=== PATIENT | female | born 1955 | race Caucasian/White ===

== ENCOUNTER 2021-11-15 19:01 | Emergency (ER) | payer BC, SELFPAY ==
--- NOTE | ~2021-11-15 | XR_ITS ---
EXAMINATION: XR chest 2V Exam Date/Time: 11/15/2021 19:12 CDT CLINICAL HISTORY: wheezing hx of copd Comparison: None available. RESULT: Lines, tubes, and devices: None. Lungs and pleura: Clear. Cardiomediastinal silhouette: Aortic ectasia and arch calcification. Other: No acute osseous or upper abdominal finding. Multilevel degenerative disc disease in the thor acic spine. IMPRESSION: No acute cardiopulmonary process Reviewed, dictated and finalized at location K.
--- NOTE | 2021-11-15 19:09 | ED.URI ---
HPI - URI/Sore Throat General Chief Complaint: Upper Respiratory Infection Stated Complaint: COPD,Wheezing Time Seen by Provider: 11/15/21 19:09 Source: patient Mode of arrival: ambulatory Limitations: no limitations History of Present Illness HPI Narrative: 66-year-old female with history of COPD presents with complaint of shortness of breath, chest tightness and cough. Has been sick with cold symptoms for the past week. Finished Z-Paulino today that was given to her by her PCP. Did a telephone visit and was not seen in the office. Has been using her daily inhalers along with her albuterol inhaler. States that she normally does not require her albuterol inhaler. States that she has not had wheezing and chest tightness before with a viral infection. Afebrile. All systems reviewed and negative except as noted above. Related Data Home Medications Medication Instructions Recorded Confirmed atorvastatin 10 mg PO DAILY 11/15/21 11/15/21 azelastine-fluticasone 1 spray INTRANASAL DIRECTED 11/15/21 11/15/21 azithromycin 1 mg PO DAILY 11/15/21 11/15/21 fluoxetine 20 mg PO DAILY 11/15/21 11/15/21 [id number]-[id number] 1 ea INHALATION DIRECTED 11/15/21 11/15/21 [Trelegy Ellipta] levalbuterol tartrate 2 puff INHALATION DIRECTED 11/15/21 11/15/21 lisinopril 10 mg PO DAILY 11/15/21 11/15/21 montelukast 10 mg PO DAILY 11/15/21 11/15/21 Allergies Allergy/AdvReac Type Severity Reaction Status Date / Time nitrofurantoin Allergy Unknown Skin Verified 07/08/17 21:20 Reaction Sulfa (Sulfonamide Allergy Unknown RASH Verified 10/13/18 08:47 Antibiotics) Review of Systems Review of Systems: CONSTITUTIONAL: Denies fever, chills, or sweats. EYES: Denies visual changes, redness, or discharge. ENT: Denies rhinorrhea, congestion, sore throat, or otalgia. CARDIOVASCULAR: Denies chest pain, palpitations, or edema. RESPIRATORY: Reports cough, wheezing and shortness of breath. GASTROINTESTINAL: Denies abdominal pain, nausea, vomiting, or diarrhea. GENITOURINARY: Denies dysuria or hematuria. SKIN: Denies rash or itching. MUSCULOSKELETAL: Denies back pain, joint pain, or myalgia. NEUROLOGIC: Denies headache, numbness, or weakness. PSYCHIATRIC: Denies anxiety or depression. All other systems reviewed are negative, except as documented in HPI. PMFSH Comments At time of signature, agree with nursing past medical, surgical, social and family history. There is no relevant family history pertinent to the presenting complaint. Exam Narrative: GENERAL: This is a well-nourished, well-developed patient, in no apparent distress. HEAD: normocephalic, atraumatic. EYES: PERRL. Sclera clear/white. Vision is grossly intact. EARS: External ears normal NOSE: External nose normal NECK: Neck supple, non-tender without lymphadenopathy, masses or thyromegaly. CARDIOVASCULAR: Regular rate and rhythm without murmurs, gallops, or rubs. RESPIRATORY: Expiratory wheezing, decreased lung sounds little air movement. No respiratory distress. SKIN: warm, Dry, intact with no suspicious lesions or rash, good texture and turgor. NEURO: awake, alert, and oriented to person, place and time. There were no obvious focal neurologic abnormalities. EXTREMITIES: Normal range of motion to all extremities. Course Course Level of Care: Express Care Visit Reevaluation(s) Reevaluation #1: Continues to have expiratory wheezing but increased air movement. Date: 11/15/21 Time: 19:46 Vital Signs Vital signs: Reviewed MDM - URI/Sore Throat MDM Narrative Medical decision making narrative: Discussed chest x-ray results with patient. Patient reports that she is feeling much better. Chest tightness has resolved. Reports that she can take a deeper breath. Prescription for nebulizer sent to pharmacy. Patient is aware of diagnosis, understands and agrees to treatment plan. Anticipatory guidance given. Patient agrees to follow-up as directed and is aware of tiffany
[2021-11-15 19:11] VITALS: BP 161/90; PULSE 106; RESP 20; TEMP 36.9; O2SAT 97
[2021-11-15] MEDS: predniSONE 20 MG TABLET 40 MG PO (19:24)
[2021-11-15] MEDS: ALBUTEROL SULFATE NEB 2.5 MG/3 ML INH INHALATION (19:24)
[2021-11-15 19:44] VITALS: PULSE 86; RESP 20; O2SAT 97
== END 2021-11-15 19:50 | disposition home or self-care (01) ==
PROVIDERS: Emergency Provider Nurse Practitioner Family
DX: J44.1 Chronic obstructive pulmonary disease with (acute) exacerbation (principal); E78.00 Pure hypercholesterolemia, unspecified; I10 Essential (primary) hypertension; F41.9 Anxiety disorder, unspecified; Z86.16 Personal history of COVID-19
CPT/HCPCS: 71046; 94640; 99213; G0463; J7512

== ENCOUNTER 2022-03-29 14:54 | Emergency (ER) | payer BC, SELFPAY ==
--- NOTE | 2022-03-29 14:59 | ED.FEMALEGU ---
HPI - Female Genitourinary General Chief complaint: Urogenital-Female Stated complaint: UTI complications Time Seen by Provider: 03/29/22 16:17 Source: patient and RN notes reviewed Mode of arrival: ambulatory Limitations: no limitations History of Present Illness HPI Narrative: 66-year-old female presents concern for dysuria, frequency, urgency, suprapubic pressure. Reports symptoms started yesterday. She denies body aches, chills, fever, sweats. Denies back pain, abdominal pain, nausea, vomiting, general malaise. Reports fatigue. MD elicited complaint: UTI Related Data Home Medications Medication Instructions Recorded Confirmed atorvastatin 10 mg tablet 10 mg PO DAILY 11/15/21 03/29/22 azelastine-fluticasone 137 mcg-50 1 spray intranasal DIRECTED 11/15/21 03/29/22 mcg/spray nasal spray fluoxetine 20 mg capsule 20 mg PO DAILY 11/15/21 03/29/22 fluticasone fur. 100 mcg-umeclid 1 ea inhalation DIRECTED 11/15/21 03/29/22 62.5 mcg-vilant 25 mcg inhalat.powder (Trelegy Ellipta) levalbuterol tartrate 45 2 puff inhalation DIRECTED 11/15/21 03/29/22 mcg/actuation aerosol inhaler lisinopril 10 mg tablet 10 mg PO DAILY 11/15/21 03/29/22 montelukast 10 mg tablet 10 mg PO DAILY 11/15/21 03/29/22 Allergies Allergy/AdvReac Type Severity Reaction Status Date / Time nitrofurantoin Allergy Unknown Skin Verified 07/08/17 21:20 Reaction Sulfa (Sulfonamide Allergy Unknown RASH Verified 10/13/18 08:47 Antibiotics) Review of Systems Review of Systems: CONSTITUTIONAL: Denies malaise, chills, sweats, or fever. CARDIOVASCULAR: Denies chest pain, palpitations, or edema. RESPIRATORY: Denies cough or dyspnea. GASTROINTESTINAL: Denies abdominal pain, nausea, vomiting, diarrhea GENITOURINARY: Reports dysuria, frequency, urgency, suprapubic pressure. Denies flank pain or hematuria. SKIN: Denies rash or itching. MUSCULOSKELETAL: Denies back pain or myalgia. All systems reviewed & are unremarkable except as noted in HPI and below PMFSH Comments At time of signature, agree with nursing past medical, surgical, social and family history. There is no relevant family history pertinent to the presenting complaint Exam Narrative: GENERAL: Well-appearing, well-nourished, and in no acute distress. HEAD: Normocephalic. EYES: PERRLA, conjunctivae clear. NECK: Supple. No lymphadenopathy CHEST: Clear to auscultation. No respiratory distress. HEART: Regular rate and rhythm. ABDOMEN: Soft, nontender upon palpation, nondistended, normal active bowel sounds, no palpable or pulsatile masses, no guarding. No CVA tenderness SKIN: Warm, dry, no rash. NEURO: Alert and oriented x3. PSYCH: Normal mood and affect Course Course Emergency Course: Patient is aware of diagnosis, understands and agrees to treatment plan. Anticipatory guidance given. Patient agrees to follow-up as directed and is aware of reasons to seek care at the emergency department. Portions of this record may have been created with voice recognition software Level of Care: Express Care Visit Vital Signs Vital signs: Vital Signs Temperature 99.6 F 03/29/22 15:07 Pulse Rate 91 03/29/22 15:07 Respiratory Rate 16 03/29/22 15:07 Blood Pressure 139/77 03/29/22 15:07 Pulse Oximetry 100 03/29/22 15:07 Oxygen Delivery Room Air 03/29/22 15:07 Temperature 99.6 F 03/29/22 15:07 Pulse Rate 91 03/29/22 15:07 Respiratory Rate 16 03/29/22 15:07 Blood Pressure 139/77 03/29/22 15:07 Pulse Oximetry 100 03/29/22 15:07 Oxygen Delivery Room Air 03/29/22 15:07 Reviewed. MDM - Female Genitourinary MDM Narrative Medical decision making narrative: Exam findings and UA show no acute concerns or changes; patient is non-toxic appearing and is in no distress. Patient is appropriate for outpatient treatment and follow-up. Differential Diagnosis Differential diagnosis: Likely urinary tract infection and cystitis Lab Data Labs:
[2022-03-29 15:07] VITALS: BP 139/77; PULSE 91; RESP 16; TEMP 37.6; O2SAT 100
== END 2022-03-29 16:27 | disposition home or self-care (01) ==
PROVIDERS: Emergency Provider Nurse Practitioner
DX: N39.0 Urinary tract infection, site not specified (principal); E78.00 Pure hypercholesterolemia, unspecified; I10 Essential (primary) hypertension; J44.9 Chronic obstructive pulmonary disease, unspecified; F41.9 Anxiety disorder, unspecified; Z86.16 Personal history of COVID-19
CPT/HCPCS: 81003; 87077; 87086; 87186; 99213; G0463

== ENCOUNTER 2022-09-13 13:13 | Emergency (ER) | payer BC, SELFPAY ==
[2022-09-13 13:18] VITALS: BP 132/77; PULSE 90; RESP 16; TEMP 36.1; O2SAT 98
--- NOTE | 2022-09-13 13:39 | ED.URI ---
HPI - URI/Sore Throat General Chief Complaint: Upper Respiratory Infection Stated Complaint: Sinus Time Seen by Provider: 09/13/22 13:22 Source: patient Mode of arrival: ambulatory Limitations: no limitations History of Present Illness HPI Narrative: patient is a 67-year-old female that presents with sinus pressure, congestion, cough for 2 weeks with symptoms worsening since Tuesday. patient has used Flonase, Claritin-D, his Sudafed D with relief. denies any fevers, ear pain or headaches. Related Data Home Medications Medication Instructions Recorded Confirmed atorvastatin 10 mg tablet 10 mg PO DAILY 11/15/21 09/13/22 fluoxetine 20 mg capsule 20 mg PO DAILY 11/15/21 09/13/22 levalbuterol tartrate 45 2 puff inhalation DIRECTED 11/15/21 09/13/22 mcg/actuation aerosol inhaler lisinopril 10 mg tablet 10 mg PO DAILY 11/15/21 09/13/22 montelukast 10 mg tablet 10 mg PO DAILY 11/15/21 09/13/22 umeclidinium 62.5 mcg-vilanterol 1 inh inhalation DIRECTED 09/13/22 09/13/22 25 mcg/actuation powdr for inhalation (Anoro Ellipta) Allergies Allergy/AdvReac Type Severity Reaction Status Date / Time nitrofurantoin Allergy Unknown Skin Verified 09/13/22 13:14 Reaction Sulfa (Sulfonamide Allergy Unknown RASH Verified 09/13/22 13:14 Antibiotics) Review of Systems Review of Systems: All systems reviewed & are unremarkable except as noted in HPI and below Constitutional: Constitutional: Denies body ache(s), Denies fever(s), Denies headache(s), Denies malaise and Denies weakness Eyes: Eyes: Denies loss of vision ENT: Denies otalgia, Reports headache(s), Reports nasal congestion, Denies sinus pain and Denies sore throat Cardiovascular: Cardiovascular: Denies chest pain, Denies irregular heart rhythm and Denies dyspnea Respiratory: Respiratory: Reports cough and Denies dyspnea Gastrointestinal: Gastrointestinal: Denies abdominal pain, Denies melena, Denies hematochezia, Denies diarrhea, Denies nausea and Denies vomiting Musculoskeletal: Musculoskeletal: Denies back pain, Denies myalgias and Denies arthralgias Integumentary/Breasts: Skin/Breast: Denies pruritus and Denies rash Neurologic: Denies headache(s), Denies loss of vision and Denies weakness Psychiatric: Psychiatric: Reports no additional psychiatric complaints PMFSH Comments At time of signature, agree with nursing past medical, surgical, social and family history. There is no relevant family history pertinent to the presenting complaint. Exam Const: General: cooperative, healthy appearing, comfortable, no acute distress and well nourished Nutritional Appearance: well nourished Orientation/consciousness: patient oriented x3 Limitations: no limitations HENMT: Head: normal to inspection, normocephalic and atraumatic Ears: external ears normal and TM's normal bilaterally Face/Nose/Sinus: Normal external nose present, normal facial exam, face symmetric and Facial tenderness on exam of face and sinuses Face and sinus: normal facial exam, face symmetric and sinus tenderness frontal and maxillary Mouth: Yes Normal oral and palatal mucosa present, Yes lip normal and Yes moist mucous membranes Teeth and gingiva: dentition normal Throat: posterior oropharynx normal, tonsils normal and uvula midline Eyes: General: appearance normal, both eyes and all related structures Alignment and Position: alignment normal and position normal Periorbital: periorbital findings normal Eyelids: eyelids normal Pupils: Equal, round and reactive pupils present Neck: Neck: normal visual inspection, full ROM and supple Chest: Chest palpation & inspection: normal inspection of the chest and normal palpation of entire chest wall Resp: Effort & Inspection: normal respiratory effort and able to speak in complete sentences Auscultation: clear to auscultation bilaterally, no crackles, no rales, no rhonchi and no wheezes Cardio: Rate: regular rate Rhythm: regular rhythm Hea
== END 2022-09-13 14:05 | disposition home or self-care (01) ==
PROVIDERS: Emergency Provider Nurse Practitioner Family
DX: J32.9 Chronic sinusitis, unspecified (principal)
CPT/HCPCS: 99213; G0463

== ENCOUNTER 2023-11-19 13:06 | Emergency (ER) | payer BC, SELFPAY ==
[2023-11-19 13:21] VITALS: BP 145/88; PULSE 94; RESP 16; TEMP 37.1; O2SAT 98
[2023-11-19 13:23] VITALS: BP 145/88; PULSE 94; RESP 16; TEMP 37.1; O2SAT 98
--- NOTE | 2023-11-19 13:43 | ED.URI ---
HPI - URI/Sore Throat General Chief Complaint: Upper Respiratory Infection Stated Complaint: sinus Infection left ear pain Time Seen by Provider: 11/19/23 13:34 Source: patient and RN notes reviewed Mode of arrival: ambulatory Limitations: no limitations History of Present Illness HPI Narrative: Patient presents today with a 10-14 day history of sinus pressure, postnasal drip, nasal congestion, cough, with left ear pain that started yesterday. Denies fever. History of COPD that is no worse than baseline. She is currently taking Zyrtec D, saline nasal rinse, humidifier, albuterol rescue inhaler and nebulizer treatments. Patient was on a course of steroids and azithromycin last month for similar symptoms. She has made an appointment with her PCP, but 1st appointment is in approximately 1 month. Related Data Home Medications Medication Instructions Recorded Confirmed atorvastatin 10 mg tablet 10 mg PO DAILY 11/15/21 11/19/23 fluoxetine 20 mg capsule 20 mg PO DAILY 11/15/21 11/19/23 montelukast 10 mg tablet 10 mg PO DAILY 11/15/21 11/19/23 umeclidinium 62.5 mcg-vilanterol 1 inh inhalation DIRECTED 09/13/22 11/19/23 25 mcg/actuation powdr for inhalation (Anoro Ellipta) losartan 50 mg tablet 50 mg PO DAILY 11/19/23 11/19/23 Allergies Allergy/AdvReac Type Severity Reaction Status Date / Time nitrofurantoin Allergy Intermediate Skin Verified 11/19/23 13:20 Reaction Sulfa (Sulfonamide Allergy Intermediate RASH Verified 11/19/23 13:20 Antibiotics) Review of Systems Review of Systems: CONSTITUTIONAL: Denies body aches, fever, chills, or sweats. EYES: Denies visual changes, redness, or discharge. ENT: Denies rhinorrhea, sore throat. + congestion, postnasal drip, left ear pain, sinus pressure CARDIOVASCULAR: Denies chest pain, palpitations, or edema. RESPIRATORY: Denies dyspnea.+ cough GASTROINTESTINAL: Denies abdominal pain, nausea, vomiting, or diarrhea. GENITOURINARY: Denies dysuria or hematuria. SKIN: Denies rash, itching, or wounds. MUSCULOSKELETAL: Denies back pain, joint pain, or myalgia. NEUROLOGIC: Denies headache, numbness, tingling, or weakness. PSYCH: Denies depression or anxiety. [facility] Past Medical History Medical History (Updated 11/19/23 @ 13:48 by An Wright, [employer], ) COPD (chronic obstructive pulmonary disease) High cholesterol Comments At time of signature, I have reviewed and agree with nursing past medical, surgical, social and family history unless otherwise noted. Please see nursing chart for further information. There is no relevant family history pertinent to the presenting complaint Exam Narrative: GENERAL: Well-appearing, well-nourished, and in no acute distress. HEAD: Normocephalic, atraumatic. EYES: EOMI. No redness or drainage. Conjunctivae normal. ENT: Mucous membranes pink and moist. Nares congested with mild rhinorrhea. Bilateral nasal turbinates are edematous and erythematous. Bilateral frontal and maxillary sinus tenderness. TMs normal bilaterally. Throat normal. Uvula midline. NECK: Normal AROM. Supple. No lymphadenopathy. CHEST: No respiratory distress. Clear to auscultation. HEART: Regular rate and rhythm. No murmur appreciated. EXTREMITIES: Normal range of motion. No edema. SKIN: Warm, dry, no rash. Capillary refill normal. Normal skin turgor. NEURO: No focal deficits. Alert and oriented x3. Gait steady. PSYCH: Normal affect. No signs of depression or anxiety. Course Course Level of Care: Express Care Visit Vital Signs Vital signs: Vital Signs Temperature 98.8 F 11/19/23 13:21 Pulse Rate 94 11/19/23 13:21 Respiratory Rate 16 11/19/23 13:21 Blood Pressure 145/88 H 11/19/23 13:21 Pulse Oximetry 98 11/19/23 13:21 Oxygen Delivery Room Air 11/19/23 13:21 Temperature 98.8 F 11/19/23 13:23 Pulse Rate 94 11/19/23 13:23 Respiratory Rate 16 11/19/23 13:23 Blood Pressure 145/88 H 11/19/23 13:23
== END 2023-11-19 13:52 | disposition home or self-care (01) ==
PROVIDERS: Emergency Provider Nurse Practitioner
DX: J44.1 Chronic obstructive pulmonary disease with (acute) exacerbation (principal); J01.91 Acute recurrent sinusitis, unspecified; Z20.822 Contact with and (suspected) exposure to COVID-19; E78.00 Pure hypercholesterolemia, unspecified
CPT/HCPCS: 99213; G0463

== ENCOUNTER 2025-04-24 17:22 | Emergency (ER) | payer MEDICARE, SELFPAY ==
[2025-04-24 17:33] VITALS: BP 135/93; PULSE 106; RESP 16; TEMP 37.3; O2SAT 97
--- NOTE | 2025-04-24 17:53 | ED_ITS ---
HPI - URI/Sore Throat General Chief Complaint: Upper Respiratory Infection Stated Complaint: Sinus Time Seen by Provider: 04/24/25 17:35 Source: patient and RN notes reviewed Mode of arrival: ambulatory Limitations: no limitations History of Present Illness HPI Narrative: 69-year-old female presents Express Care complaining of upper respiratory symptoms for 2 weeks. Patient reports cough, congestion, sinus pressure, mucopurulent nasal drainage, sore throat. The symptoms are not improving and says are getting worse. Patient has a chest pain, shortness of breath, difficulty breathing, nausea vomiting, diarrhea, abdominal pain, or any other symptoms. Patient has a history of COPD, she has been using her inhalers without any issues. Patient no longer smokes. Related Data Home Medications ?Medication ?Instructions ?Recorded ?Confirmed ?Last Taken ?Type atorvastatin 10 mg tablet 10 mg PO DAILY 11/15/2104/04 Unknown History fluoxetine 20 mg capsule 20 mg PO DAILY 11/15/2104/04 Unknown History montelukast 10 mg tablet 10 mg PO DAILY 11/15/2104/04 Unknown History umeclidinium 62.5 mcg-vilanterol 1 inh inhalation D IRECTED 09/13/22 11/19/23 Unknown History 25 mcg/actuation powdr for inhalation (Anoro Ellipta) losartan 50 mg tablet 50 mg PO DAILY 11/19/2311/01 Unknown History azelastine 137 mcg (0.1 %) nasal intranasal 04/24/25 Unknown History spray estradiol 0.01% (0.1 mg/gram) vaginal 04/24/25 Unknow n History vaginal cream Allergies Allergy/AdvReac Type Severity Reaction Status Date / Time nitrofurantoin Allergy Intermediate Skin Verified 04/24/25 17:28 Reaction Sulfa (Sulfonamide Allergy Intermediate RASH Verified 04/24/25 17:28 Antibiotics) Review of Systems Review of Systems: CONSTITUTIONAL: Denies fever, chills, or sweats. EYES: Denies visual changes, redness, or discharge. ENT: Denies rhinorrhea, or otalgia. Positive for congestion, sinus pressure, sore throat. CARDIOVASCULAR: Denies chest pain, palpitations, or edema. RESPIRATORY: Positive for cough. Negative for wheezing or dyspnea. GASTROINTESTINAL: Denies abdominal pain, nausea, vomiting, or diarrhea. GENITOURINARY: Denies dysuria or hematuria. SKIN: Denies rash or itching. MUSCULOSKELETAL: Denies back pain, joint pain, or myalgia. NEUROLOGIC: Denies headache, numbness, or weakness. PSYCHIATRIC: Denies anxiety or depression. All other systems reviewed are negative, except as documented in HPI. [facility] Past Medical History Medical History High cholesterol COPD (chronic obstructive pulmonary disease) Comments At the time of my signature, I reviewed and agree with the nursing past medical, surgical, social, and family history. There is no relevant family history pertinent to the patient complaint. Exam Narrative: GENERAL: This is a well-nourished, well-developed adult, in no apparent distress. They are non ill-appearing, nontoxic appearing. HEAD: normocephalic, atraumatic. EYES: Sclera clear/white. Conjunctiva normal. Vision is grossly intact. Extraocular movements intact EARS: External ears normal, auditory canals clear and without drainage, TMs normal without perforation. Hearing grossly intact. NOSE: External nose normal with no obvious nasal discharge, nasal turbinates erythematous with exudate no rhinorrhea. Maxillary and frontal sinus tenderness to palpation. THROAT: Mucous membranes moist, posterior pharynx erythemic without swelling, Uvula midline. Postnasal drip present. NECK: Neck supple, non-tender without lymphadenopathy, masses or thyromegaly. CARDIOVASCULAR: Regular rate and rhythm without murmurs, gallops, or rubs. RESPIRATORY: Clear to auscultation. Breath sounds equal bilaterally. No wheezes, rales, or rhonchi. SKIN: warm, Dry, intact with no suspicious lesions or rash, good texture and turgor. NEURO: awake, alert, and oriented to person, place and time. There were no obvious focal neurologic abnormalities. EXTREMITIES: No joint tenderness, effusion, or edema noted. BACK: Nontender without deformity. No CVA tenderness. Course Course Emergency Course: Portions of this record may have been created with voice recognition software Level of Care: Express Care Visit Vital Signs Vital signs: Vital Signs Temperature 99.2 F 04/24/25 17:33 Pulse Rate 106 H 04/24/25 17:33 Respiratory Rate 16 04/24/25 17:33 Blood Pressure 135/93 H 04/24/25 17:33 Pulse Oximetry 97 10/22/25 17:33 Oxygen Delivery Room Air 04/24/25 17:33 Temperature 99.2 F 04/24/25 17:33 Pulse Rate 106 H 04/24/25 17:33 Respiratory Rate 16 04/24/25 17:33 Blood Pressure 135/93 H 04/24/25 17:33 Pulse Oximetry 97 04/24/25 17:33 Oxygen Delivery Room Air 04/24/25 17:33 Reviewed MDM - URI/Sore Throat MDM Narrative Medical decision making narrative: Given patient's length of symptoms likely has bacterial sinusitis. Will treat her with Augmentin. Discussed physical exam findings. Advised supportive measures and signs/symptoms to go to the ER. Pt is appropriate for outpt treatment and f/u. Differential Diagnosis Differential diagnosis: Likely upper respiratory infection, sinusitis, viral infection and pharyngitis Critical Care Time Critical Care Time Critical Care Time: No Discharge Plan Discharge Clinical Impression: Sinusitis Qualifiers: Sinusitis location: unspecified location Chronicity: acute Recurrence: non- recurrent Qualified Code(s): J01.90 - Acute sinusitis, unspecified Patient Disposition: Home Condition: Stable Instructions: Antibiotic Form, Sinusitis (ED) Additional Instructions: Take the antibiotics as directed and complete the course even if you start to feel better. You may use a Neti pot saline rinse 3 times a day with lukewarm distilled water Continue to take Tylenol or Motrin as needed for pain or fevers. Follow instructions on the bottle. Use a humidifier or vaporizer at night. Drink plenty of water. 8-10 glasses per day. Use flonase 2 times per day for 5 days then as needed Take mucinex 2 times per day and be sure to take with 8oz of water. Follow up with Primary provider in 3-5 days Please go to the ER if he develops any difficulty breathing, chest pain, nausea, vomiting, fevers, worsening symptoms, or any other concerns Patient Language: Yi Prescriptions: New amoxicillin-pot clavulanate 875-125 mg tablet 1 tablet PO Q12H 7 Days Qty: 14 0RF No Action azelastine 137 mcg (0.1 %) spray,non-aerosol INTRANASAL estradiol 0.01 % (0.1 mg/gram) cream VAGINAL atorvastatin 10 mg tablet 10 mg PO DAILY montelukast 10 mg tablet 10 mg PO DAILY fluoxetine 20 mg capsule 20 mg PO DAILY (DME) nebulizer accessories Kit See Rx Instructions .Route Qty: 1 0RF Rx Instructions: As directed (DME) nebulizers [TruNeb Nebulizer] [facility] [place] See Rx Instructions .Route Qty: 1 0RF Rx Instructions: As directed albuterol sulfate 2.5 mg /3 mL (0.083 %) solution for nebulization 2.5 mg inhalation Q4-6H PRN (Reason: shortness of breath or wheezing) Qty: 75 0RF Anoro Ellipta 62.5-25 mcg/actuation blister with device 1 inh INHALATION DIRECTED losartan 50 mg tablet 50 mg PO DAILY prednisone 50 mg tablet 50 mg PO DAILY 5 Days Qty: 5 0RF Follow-up/Referrals: Oniel Tidwell DO [Primary Care Provider, Internal Medicine] Time of Disposition: 17:51
== END 2025-04-24 17:56 | disposition home or self-care (01) ==
PROVIDERS: PCP Internal Medicine
DX: J01.90 Acute sinusitis, unspecified (principal); J44.9 Chronic obstructive pulmonary disease, unspecified; E78.00 Pure hypercholesterolemia, unspecified
CPT/HCPCS: 99213; G0463